=== PATIENT | male | born 1960 | race Caucasian/White ===

== ENCOUNTER 2024-07-29 09:50 | Day surgery (SDC) | payer OTHER ==
[2024-07-29] VITALS (14 sets, daily range): BP systolic 117–148; BP diastolic 66–94
[~2024-07-29] VITALS: Ht 175.3 cm; Wt 89.2 kg
[~2024-07-29 09:50] MED LIST: BUPR100 PO; CHLO25 PO; LISI5 PO; Lactated Ringer's 1,000 ML IV SCH; METF500 PO; METO50 PO; MIRT15 PO; QUET25 PO; SIMV40 PO
--- NOTE | 2024-07-29 10:47 | NUR ---
Ambulatory in Day SurgeryPre-Op teaching done. Pt verbalizes understanding. History, Chart, Medications and Allergies reviewed before start of procedure.Patient confirms NPO status and agrees with scheduled surgery. Patient States Post-Procedure ride home has been arranged.
[2024-07-29] MEDS ORDERED: propofoL 40 ML IV ONE (11:15)
--- NOTE | 2024-07-29 11:27 | NUR ---
07/29/24 Irene Parada CONFIRMED AND REVIEWED H&P, MEDCICATIONS, ALLERGIES, MEDICAL HISTORY, RESPIRATORY HISTORY, VITAL SIGNS, 3-LEAD EKG, CONSENTS, AND PHYSICIAN ORDERS. PATIENT CONFIRMS NPO STATUS AND AGREES WITH SCHEDULED PROCEDURE. MONITOR INTACT WITH CONTINUOUS PULSE OXIMETRY, CAPNOGRAPHY, 3-LEAD EKG, INTERMITTENT BP. SUPPLEMENTAL O2 TO BE TITRATED THROUGHOUT PROCEDURE TO MAINTAIN O2 SATURATION ABOVE 90%. PATIENT DETERMINED TO BE ASA APPROPRIATE FOR PROPOFOL SEDATION PRIOR TO START OF PROCEDURE BY DR. PRINCE.
--- NOTE | 2024-07-29 12:06 | NUR ---
Discharge instructions reviewed with patient. Patient verbalizes understanding. Copy given to patient to take home. Patient States Post-Procedure ride home has been arranged. Discharged via wheelchair to private car for ride home.
== END 2024-07-29 12:08 | disposition home or self-care (01) ==
LOC: ORSCMMR 09:50 → ORD 11:00 → ORSCMMR 12:08
PROVIDERS: Internal Medicine Gastroenterology
PROC: 0DBH8ZX Excision of Cecum, Via Natural or Artificial Opening Endoscopic, Diagnostic (ICD-10-PCS; principal; 2024-07-29 11:00)
DX: R10.30 Lower abdominal pain, unspecified (principal); D12.0 Benign neoplasm of cecum; E11.9 Type 2 diabetes mellitus without complications; G47.30 Sleep apnea, unspecified; I10 Essential (primary) hypertension; F32.A Depression, unspecified; Z79.84 Long term (current) use of oral hypoglycemic drugs; Z79.4 Long term (current) use of insulin; Z79.899 Other long term (current) drug therapy
CPT/HCPCS: 82947; 88305; J2704; J7120